=== PATIENT | female | born 1935 | race Caucasian/White ===

== ENCOUNTER 2020-06-09 13:28 | Emergency (ER) | payer OTHER ==
[~2020-06-09] VITALS: Ht 167.6 cm; Wt 74.8 kg
[~2020-06-09 13:28] MED LIST: TRAM50TA1 PO; UNKNOWN BP MED
[2020-06-09 14:14] VITALS: BP 202/121
[2020-06-09] MEDS ORDERED: MORPHINE SULFATE 4 MG/ML SYR IVP ONE (14:25)
[2020-06-09] MEDS ORDERED: NACL 0.9% 1,000 ML IV ONE (14:25)
[2020-06-09 15:13] LABS: BASOPHILS # (AUTO) 0.1 K/uL (0.00-0.22); BASOPHILS % (AUTO) 0.8 % (0.0-2.0); EOSINOPHILS # (AUTO) 0.1 K/uL (0-0.4); EOSINOPHILS % (AUTO) 0.7 % (0.0-4.0); HEMATOCRIT 35.1 % (36-48); LYMPHOCYTES % (AUTO) 18.8 % (20.5-51.1); MEAN CORPUSCULAR HEMOGLOBIN 32 pg (27-31); MEAN CORPUSCULAR HGB CONC 34 g/dL (33-37); MEAN CORPUSCULAR VOLUME 92.9 fL (80-94); MONOCYTES # (AUTO) 1.1 K/uL (0.8-1.0); MONOCYTES % (AUTO) 10.7 % (1.7-9.3); NEUTROPHILS # (AUTO) 7.2 K/uL (1.8-7.7); PLATELET COUNT (AUTO) 179 K/uL (140-450); RED BLOOD CELL COUNT(AUTO) 3.77 MIL/uL (4.20-5.40); RED CELL DISTRIBUTION WIDTH 14.4 % (11.6-13.7); WHITE BLOOD COUNT (AUTO) 10.4 K/uL (4.8-10.8)
[2020-06-09 15:34] LABS: ALBUMIN 3.5 g/dL (3.4-5.0); ANION GAP 9.6 (8-16); ASPARTATE AMINOTRANSFERASE 33 U/L (15-37); CARBON DIOXIDE 30.5 mmol/L (21-32); CHLORIDE 100 mmol/L (98-107); GLUCOSE 160 mg/dL (74-106); POTASSIUM 4.1 mmol/L (3.5-5.1); SODIUM SERUM 136 mmol/L (136-145); TOTAL BILIRUBIN 0.3 mg/dL (0.0-1.0)
[2020-06-09 15:56] LABS: UREA NITROGEN, BLOOD 9 mg/dL (7-18)
[2020-06-09 17:12] VITALS: BP 147/74
== END 2020-06-09 17:13 | disposition home or self-care (01) ==
LOC: MED 13:28
DX: R51.9 Headache, unspecified (principal); N39.0 Urinary tract infection, site not specified; I10 Essential (primary) hypertension
CPT/HCPCS: 36415; 70450; 80053; 81002; 85025; 87804; 96361; 96374; 99284; J2270; J7030

== ENCOUNTER 2020-06-13 18:23 | Inpatient (IN) | payer OTHER, SELFPAY ==
[~2020-06-13] VITALS: Ht 162.6 cm; Wt 72.6 kg
[2020-06-13 18:32] VITALS: BP 167/108
--- NOTE | 2020-06-13 19:15 | NUR ---
CALLED [facility] FOR ERMD-- PHYSICIAN CREDENTIALING SPECIALIST WON WITH ID: [id number]
--- NOTE | 2020-06-13 19:29 | NUR ---
Dr. Meyers examining patient.
[2020-06-13] MEDS ORDERED: NACL 0.9% 1,000 ML IV ONE (19:35)
[2020-06-13] MEDS ORDERED: KETOROLAC 30 MG/ML VIAL IVP ONE (19:35)
--- NOTE | 2020-06-13 19:44 | NUR ---
PT TAKEN TO ER BED 4
[2020-06-13 20:00] LABS: BASOPHILS # (AUTO) 0.1 K/uL (0.00-0.22); BASOPHILS % (AUTO) 0.3 % (0.0-2.0); EOSINOPHILS # (AUTO) 0.1 K/uL (0-0.4); EOSINOPHILS % (AUTO) 0.3 % (0.0-4.0); HEMATOCRIT 35.2 % (36-48); LYMPHOCYTES # (AUTO) 1.7 K/uL (2.5-16.5); LYMPHOCYTES % (AUTO) 8.9 % (20.5-51.1); MEAN CORPUSCULAR HEMOGLOBIN 32 pg (27-31); MEAN CORPUSCULAR HGB CONC 34 g/dL (33-37); MEAN CORPUSCULAR VOLUME 92.3 fL (80-94); MONOCYTES # (AUTO) 1.6 K/uL (0.8-1.0); MONOCYTES % (AUTO) 8.2 % (1.7-9.3); NEUTROPHILS % (AUTO) 82.3 % (42.2-75.2); PLATELET COUNT (AUTO) 174 K/uL (140-450); RED BLOOD CELL COUNT(AUTO) 3.82 MIL/uL (4.20-5.40); RED CELL DISTRIBUTION WIDTH 13.8 % (11.6-13.7); WHITE BLOOD COUNT (AUTO) 19.5 K/uL (4.8-10.8)
--- NOTE | 2020-06-13 20:00 | NUR ---
Spring dougherty in ED - 06/13/20 at 2009 by MEDNAJMA EKG PERFORMED IN TENT WITH SCREEN. EKG READS SINUS RHYTHM @ 81
--- NOTE | 2020-06-13 20:00 | NUR ---
85 Y/O FEMALE PRESENTED TO THE ED FROM HOME C/O 02/19 SHARP ABD PAIN, GRAJEDA AND PLEURITIC CHEST PAIN, WEAKNESS AND DECREASED APPETITE X2 DAYS. +N/V. DENIES FEVER/DIARRHEA. S1,S2 SOUNDS NOTED. DIMINISHED LUNG SOUNDS IN BILATERAL LOBES. PT DENIES PAIN WITH INSPIRATION. ABD IS TENDER TO PALPATION, BOWEL SOUNDS NORMOACTIVE X4 QUADRANT. PMH: HTN NKA
[2020-06-13 20:13] LABS: ALBUMIN 3.3 g/dL (3.4-5.0); ANION GAP 7.3 (8-16); ASPARTATE AMINOTRANSFERASE 30 U/L (15-37); CARBON DIOXIDE 31.4 mmol/L (21-32); CHLORIDE 92 mmol/L (98-107); CREATININE 1.1 mg/dL (0.6-1.3); GLUCOSE 161 mg/dL (74-106); POTASSIUM 3.7 mmol/L (3.5-5.1); SODIUM SERUM 127 mmol/L (136-145); TOTAL BILIRUBIN 0.6 mg/dL (0.0-1.0); UREA NITROGEN, BLOOD 9 mg/dL (7-18)
--- NOTE | 2020-06-13 20:20 | NUR ---
PT REFUSED METOCLOPRAMIDE, SHE STATED THAT SHE DOESN'T NEED IT BECAUSE SHE IS NO LONGER NAUSEOUS
[2020-06-13] MEDS: METOCLOPRAMIDE 10 MG/2 ML INJ VIAL IVP ONE ×2 (20:35→20:59)
--- NOTE | 2020-06-13 21:00 | NUR ---
PT IS SITTING IN UPRIGHT POSITION FOR COMFORT, PT IS CONNECTED TO THE VP DESIGN. BED IS LOCKED AND IN LOWEST POSITION. SIDE RAILSX1. NO ACUTE DISTRESS NOTED AT THIS TIME. SAO2@96%RA.
--- NOTE | 2020-06-13 21:38 | NUR ---
PT AMBULATED TO ED RESTROOM WITH STEADY GAIT
[2020-06-13] MEDS ORDERED: cefTRIAXone 1,000 MG VIAL ONE (21:40)
--- NOTE | 2020-06-13 21:45 | NUR ---
PT AMBULATED TO ED BED 4 WITH STEADY GAIT AND RECONNECTED TO THE DECAL CUTTER.
--- NOTE | 2020-06-13 22:09 | NUR ---
PER JULIA TERRY, ORDERS FOR URINE COLLECTION AND DIP STICK NEEDED
--- NOTE | 2020-06-13 22:16 | NUR ---
URINE DIP STICK COLLECTED, DOCUMENTED AND JULIA TERRY MADE AWARE
[2020-06-13] MEDS ORDERED: MORPHINE SULFATE 4 MG/ML SYR IVP SCH (22:35)
--- NOTE | 2020-06-13 22:57 | NUR ---
[facility], PCR, AND FLU COLLECTED---LAB NOTIFIED THAT THEY'RE READY FOR PICKUP
[2020-06-13 22:58] LABS: APPEARANCE,URINE CLEAR (CLEAR); BILIRUBIN,URINE NEGATIVE (NEGATIVE); BLOOD, URINE NEGATIVE (NEGATIVE); COLOR,URINE YELLOW (YELLOW); LEUKOCYTE ESTERASE ,URINE NEGATIVE (NEGATIVE); NITRITE, URINE NEGATIVE (NEGATIVE); UGLUCOSE TRACE (NEGATIVE)
--- NOTE | 2020-06-13 23:00 | NUR ---
PT IS ON HER PHONE AND SITTING IN UPRIGHT POSITION FOR COMFORT, PT IS CONNECTED TO THE MOVIE EDITOR. BED IS LOCKED AND IN LOWEST POSITION. SIDE RAILSX1. NO ACUTE DISTRESS NOTED AT THIS TIME. SAO2@95%RA. CALL LIGHT WITHIN REACH.
--- NOTE | 2020-06-13 23:24 | NUR ---
SPOKE WITH SON, KIRSTIE JAUREGUI TO UPDATE HIM ON THE PT STATUS AND ADMISSION
[2020-06-13] MEDS ORDERED: POTASSIUM CHLORIDE 10 MEQ TABER PO PRN (23:30)
[2020-06-13] MEDS ORDERED: MAGNESIUM OXIDE 400 MG TAB PO PRN (23:30)
[2020-06-13] MEDS ORDERED: KCL 20 MEQ/WATER INJ PREMIX 200 ML IV PRN (23:30)
[2020-06-13] MEDS ORDERED: ZOLPIDEM 5 MG TAB PO PRN (23:30)
[2020-06-13] MEDS ORDERED: ONDANSETRON 4 MG/2 ML VIAL IVP PRN (23:30)
[2020-06-13] MEDS ORDERED: MAG SULF 2000 MG/WATER PREMIX 50 ML IV PRN (23:30)
--- NOTE | 2020-06-13 23:45 | NUR ---
CALLED REPORT TO YANIRA LOCKE FOR TRANSFER OF CARE
[2020-06-13] MEDS ORDERED: AZITHROMYCIN 500 MG INJ VIAL IV ONE (23:58)
[2020-06-14] VITALS: BP 160/72
--- NOTE | 2020-06-14 00:07 | NUR ---
Patient will be admitted to care of . [facility]. Will go to [id number]. Belongings list completed. Report to YANIRA LOCKE.
--- NOTE | 2020-06-14 00:15 | NUR ---
ADMITTED A 85F FROM ER. CAME DUE TO H/A. ABDOMINAL PAIN, WITH N/V AT HOME. AWAKE,ALERT AND ORIENTED X4. MED SURG PT. PT WAS TESTED NEGATIVE ON RAPID COVID TEST . PCR TEST STILL PENDING. SHE HAS HX: COVID POSITIVE 2 MOS AGO. WITH NO C/O ANY DISCOMFORT NOR PAIN AT THIS TIME. NO SOB NOTED O2 SAT 95% ON RA. AMBULATORY. SKIN INTACT. WITH HL ON THE LT AC G#20. CLEAR AND PATENT. PLACED COMFORTABLE IN BED. SIDE RAILS UP X2. CALL LIGHT PLACED WITHIN REACH. PLAN OF CARE DISCUSSED . WILL CONTINUE TO MONITOR.
[2020-06-14] MEDS: NACL 0.9% 1,000 ML IV SCH ×3 (00:23→22:17)
[2020-06-14] MEDS: AZITHROMYCIN 500 MG in DEXTROSE 5% 250 ML IV SCH ×2 (00:23→22:07)
--- NOTE | 2020-06-14 00:23 | NUR ---
ZITHROMAX IVPB STARTED . WILL MONITOR FOR ANY REACTION.
--- NOTE | 2020-06-14 01:50 | NUR ---
spoke with the pt and her son Marcial Nichole, they are both unable to provide the names of the patient's medications at this time.
[2020-06-14] MEDS ORDERED: IBUP-2213 PO (01:56)
[2020-06-14] MEDS ORDERED: ACET-9494 PO (01:56)
[2020-06-14] MEDS ORDERED: CIPR500T4 PO (01:56)
[2020-06-14] MEDS ORDERED: ONDA8TAB87 PO (01:56)
--- NOTE | 2020-06-14 02:00 | NUR ---
PT FEEL COLD. PROVIDED WITH WARM BLANKET.
[2020-06-14 04:00] VITALS: BP 142/66
--- NOTE | 2020-06-14 04:00 | NUR ---
AWAKE .WATCHING TV. NO C/O ANY DISCOMFORT NOR PAIN NOTED. WILL CONTINUE TO MONITOR.
--- NOTE | 2020-06-14 06:00 | NUR ---
MADE ROUNDS. PT IS ASLEEP. NO S/S OF ANY DISTRESS NOTED.
[2020-06-14 06:52] LABS: BASOPHILS % (AUTO) 0.2 % (0.0-2.0); EOSINOPHILS % (AUTO) 0.1 % (0.0-4.0); HEMATOCRIT 31.2 % (36-48); HEMOGLOBIN 10.7 g/dL (12.0-16.0); LYMPHOCYTES # (AUTO) 1.6 K/uL (2.5-16.5); LYMPHOCYTES % (AUTO) 8.2 % (20.5-51.1); MEAN CORPUSCULAR HEMOGLOBIN 32 pg (27-31); MEAN CORPUSCULAR HGB CONC 34 g/dL (33-37); MEAN CORPUSCULAR VOLUME 92.2 fL (80-94); MONOCYTES # (AUTO) 2.1 K/uL (0.8-1.0); MONOCYTES % (AUTO) 10.9 % (1.7-9.3); NEUTROPHILS # (AUTO) 15.7 K/uL (1.8-7.7); NEUTROPHILS % (AUTO) 80.6 % (42.2-75.2); PLATELET COUNT (AUTO) 139 K/uL (140-450); RED BLOOD CELL COUNT(AUTO) 3.38 MIL/uL (4.20-5.40); RED CELL DISTRIBUTION WIDTH 13.9 % (11.6-13.7); WHITE BLOOD COUNT (AUTO) 19.5 K/uL (4.8-10.8)
--- NOTE | 2020-06-14 07:10 | NUR ---
REC'D REPORT FROM VENEER STOCK LAYER NURSE, PT A/Ox4, MALTESE SPEAKING,. RA.ROCIO
[2020-06-14 07:16] LABS: ALBUMIN 2.8 g/dL (3.4-5.0); ANION GAP 7.9 (8-16); ASPARTATE AMINOTRANSFERASE 28 U/L (15-37); CARBON DIOXIDE 31.3 mmol/L (21-32); CHLORIDE 98 mmol/L (98-107); GLUCOSE 130 mg/dL (74-106); MAGNESIUM 1.5 mg/dL (1.8-2.4); POTASSIUM 4.2 mmol/L (3.5-5.1); SODIUM SERUM 133 mmol/L (136-145); TOTAL BILIRUBIN 0.7 mg/dL (0.0-1.0); UREA NITROGEN, BLOOD 8 mg/dL (7-18)
--- NOTE | 2020-06-14 07:25 | NUR ---
ENDORSED PT IN STABLE CONDITION TO AM NURSE FOR CONTINUITY OF CARE.
[2020-06-14 08:00] VITALS: BP 129/6
[2020-06-14] MEDS: ENOXAPARIN 40 MG/0.4 ML SYR SUBQ SCH (08:28)
[2020-06-14] MEDS: DOCUSATE SODIUM 100 MG GELCAP PO SCH (08:28)
--- NOTE | 2020-06-14 08:34 | NUR ---
ADMINISTERED MEDICATION PER MD ORDER, PT TOLERATED PROCEDURE WELL, HAS BREAKFAST TRAY AT BEDSIDE, DENIES PAIN AT THIS TIME, CALL LIGHT WITHIN REACH, BED LOWEST POSITION. PT STABLE, NO SIGN OF DISTRESS
--- NOTE | 2020-06-14 09:08 | NUR ---
PATIENT HAS BEEN SCREENED AND CATEGORIZED MODERATE NUTRITION RISK. PATIENT WILL BE SEEN WITHIN 3-5 DAYS OF ADMISSION. 06/16/20 06/18/[address]
[2020-06-14] MEDS: ACETAMINOPHEN 325 MG TAB PO PRN ×2 (10:52→17:37)
--- NOTE | 2020-06-14 10:52 | NUR ---
PT C/O HEADACHE, NECK PAIN 7/10 ADMINISTERED ACETAMINOPHEN 650MG
--- NOTE | 2020-06-14 12:08 | NUR ---
DC PLANNIN YRS OLD FEMALE PATIENT WAS ADMITTED FROM HOME WITH A DX OF PNEUMONIA, PUI, AND HYPONATREMIA. PT HAS A HX OF HTN. CXR SHOWED MILD BIBASAL OPACITIES CONCERNING FOR MULTIFOCAL PNEUMONIA. RAPID COVID TEST NEGATIVE PCR IS PENDING. ADMINISTERED IVF, IV ABX ROCEPHIN AND AZITHROMYCIN IV ABX AND CONTINUED HOME MEDS. DC PLAN TO GO HOME WHEN STABLE CM TO FOLLOW Addendum: 06/15/20 at 1207 by Mary Jay CM DC POWDERER: SPOKE TO PATIENT USING QUILLER HAND [id number] TO DISCUSS SNF. SHE IS NOT AGREEABLE TO GOING TO SNF BUT SHE IS AGREEABLE TO HOME HEALTH. Addendum: 06/15/20 at 1440 by Mary Jay CM JEAN-PAUL POWDERER: FAXED ORDER TO [facility] Addendum: 06/15/20 at 1503 by Mary Jay CM JEAN-PAUL MOY: RECEIVED A PHONE CALL FROM [facility] THEY ARE ABLE TO ACCEPT PATIENT. NOTIFIED YANIRA CHAMBERS.
--- NOTE | 2020-06-14 13:41 | NUR ---
SOCIAL WORK NOTE: Patient's Orientation Unable To Assess Information Provided By SHANIA FRAUSTO - SON Comments SW WAS UNABLE TO MEET PATIENT AT BEDSIDE. SW COMPLETED ASSESSMENT WITH PATIENT AT BEDSIDE. Business Info Consultant, Realtionship and Phone Number SHANIA FRAUSTO DAUGHTER [phone] Healthcare Power of Thrasher Feeder No Does Patient Have a POLST No Identifying Problems No Social Work Triggers Is A Social Work Consult Needed No Mandate Report Filed No Explanation Of Identifying Problems PATIENT IS AN 85-YEAR-OLD FEMALE ADMITED FOR PNEUMONIA. PATIENT HAS PMHX OF HYPERTENSION. Admitted From Home Pre-Admission Level Of Functioning Status Independent/Ambulatory Prior Resources/Services Used In Last 12 Months No Prior Resources Used Prior DME No Prior DME Used Dialysis Comments N/A Living Situation Lives With Family Mobile Home Patient Had Caregiver No Home Support No Caregiver Issues Financial Issues No Known Financial Issue Referral To The Financial Counselor Needed No Factors/Needs No D/C Needs Identified Pt/Rep Participated In Discharge Plan Yes Patient/Family Agress With Discharge Plan Yes Discharge Plan Comments TENTATIVE DISCHARGE PLAN IS FOR PATIENT TO RETURN HOME. DC Plan Status Initiated
[2020-06-14 16:00] VITALS: BP 124/58
--- NOTE | 2020-06-14 18:18 | NUR ---
PT RESTING, CALL LIGHT WITHIN REACH, RA. NO SIGN OF DISTRESS
--- NOTE | 2020-06-14 19:20 | NUR ---
ENDORSED PT TO ASSISTANT PLANT CONTROLLER NURSE FOR CONTINUITY OF CARE, PT ON RA, CALL LIGHT WITHIN REACH. STABLE
[2020-06-14 20:00] VITALS: BP 163/71
--- NOTE | 2020-06-14 20:00 | NUR ---
PT IN BED NO C/ O 3/10 PAIN, PAIN TOLERABLE AT THIS TIME.
[2020-06-14] MEDS ORDERED: traMADol 50 MG TAB PO PRN (22:40)
[2020-06-15] VITALS: BP 154/63
--- NOTE | 2020-06-15 | NUR ---
CALLED ORDER ENTRY SPECIALIST MD BECAUSE PT PAIN NOT RELIEVED WITH TYLENOL. MD ORDER ENTRY SPECIALIST MD GARRISON ORDERED A TRAMADOL 50MG PO Q 6HRS. MD MADE AWARE THAT B/P IS ELEVATED AT 163/71, HE ORDERED PT AT HOME MEDICATION BENAZAPRIL 5MG IN THE AM.
--- NOTE | 2020-06-15 01:00 | NUR ---
PT WAS GIVEN PRN TRTAMADOL V/S FOLLOWS: T 98.5 P 67 R20 B/P 154/63 02 94% ON ROOM AIR. Addendum: 06/15/20 at 0539 by Louise Varner RN [id number]
[2020-06-15] MEDS: ACETAMINOPHEN 325 MG TAB PO PRN ×2 (01:33→09:28)
[2020-06-15 04:00] VITALS: BP 168/72
[2020-06-15] MEDS ORDERED: traMADol 50 MG TAB PO ONE (05:00)
[2020-06-15] MEDS ORDERED: hydrALAZINE 25 MG TAB PO PRN (05:00)
--- NOTE | 2020-06-15 05:00 | NUR ---
PAGED POCKET CLOSER MD TREJO, WHOM ORDERED A X1 DOSE OF TRAMADOL 50MG AND A HYDRALAZINE 50MG PO/PRN FOR HTN..
[2020-06-15 07:14] LABS: ALBUMIN 2.7 g/dL (3.4-5.0); ANION GAP 8.8 (8-16); ASPARTATE AMINOTRANSFERASE 24 U/L (15-37); CARBON DIOXIDE 29.7 mmol/L (21-32); CHLORIDE 98 mmol/L (98-107); CREATININE 0.9 mg/dL (0.6-1.3); GLUCOSE 123 mg/dL (74-106); MAGNESIUM 2.1 mg/dL (1.8-2.4); POTASSIUM 3.5 mmol/L (3.5-5.1); SODIUM SERUM 133 mmol/L (136-145); TOTAL BILIRUBIN 0.7 mg/dL (0.0-1.0); UREA NITROGEN, BLOOD 10 mg/dL (7-18)
--- NOTE | 2020-06-15 07:38 | NUR ---
REC'D REPORT FROM MASTER BREWER NURSE. PT SLEEPING, RA. PER MASTER BREWER NURSE PT NOT ABLE TO SLEEP DURING NIGHT, WILL CONTINUE TO MONITOR HER HEADACHE TODAY.
[2020-06-15 08:00] VITALS: BP 149/64
[2020-06-15] MEDS: ENOXAPARIN 40 MG/0.4 ML SYR SUBQ SCH (09:25)
[2020-06-15] MEDS: DOCUSATE SODIUM 100 MG GELCAP PO SCH (09:27)
[2020-06-15] MEDS: BENAZEPRIL 5 MG TAB PO SCH (09:28)
--- NOTE | 2020-06-15 09:35 | NUR ---
ADMINISTERED MEDICATIONS PER MD ORDER, PT C/O HEADACHE 12/20 GAVE ACETAMINOPHEN PER MD ORDER, PT TOLERATED PROCEDURE WELL
[2020-06-15 10:26] LABS: BASOPHILS % (AUTO) 0.3 % (0.0-2.0); EOSINOPHILS # (AUTO) 0.3 K/uL (0-0.4); EOSINOPHILS % (AUTO) 1.8 % (0.0-4.0); HEMATOCRIT 30.5 % (36-48); HEMOGLOBIN 10.4 g/dL (12.0-16.0); LYMPHOCYTES # (AUTO) 1.8 K/uL (2.5-16.5); LYMPHOCYTES % (AUTO) 10.9 % (20.5-51.1); MEAN CORPUSCULAR HEMOGLOBIN 32 pg (27-31); MEAN CORPUSCULAR HGB CONC 34 g/dL (33-37); MEAN CORPUSCULAR VOLUME 92.4 fL (80-94); MONOCYTES # (AUTO) 2.1 K/uL (0.8-1.0); MONOCYTES % (AUTO) 12.5 % (1.7-9.3); NEUTROPHILS # (AUTO) 12.3 K/uL (1.8-7.7); NEUTROPHILS % (AUTO) 74.5 % (42.2-75.2); PLATELET COUNT (AUTO) 123 K/uL (140-450); RED CELL DISTRIBUTION WIDTH 14.3 % (11.6-13.7); WHITE BLOOD COUNT (AUTO) 16.5 K/uL (4.8-10.8)
[2020-06-15] MEDS ORDERED: HYDROcodone/APAP 5/325 MG 1 TAB TAB PO ONE (12:35)
[2020-06-15] MEDS ORDERED: HYDROcodone/APAP 5/325 MG 1 TAB TAB PO SCH (13:00)
[2020-06-15] MEDS: NACL 0.9% 1,000 ML IV SCH (13:00)
[2020-06-15 16:00] VITALS: BP 127/60
[2020-06-15] MEDS ORDERED: HYDROcodone/APAP 5/325 MG 1 TAB TAB PO PRN (19:00)
--- NOTE | 2020-06-15 19:41 | NUR ---
RECEIVED REPORT FROM RN DAYSHIFT NURSE AT BEDSIDE FOR CONTINUITY OF CARE, PT IN STABLE CONDITION.
--- NOTE | 2020-06-15 19:41 | NUR ---
ENDORSED PT TO CERTIFIED CYTOTECHNOLOGIST NURSE ,PT STABLE, NO SIGN OF DISTRESS
[2020-06-15 20:00] VITALS: BP 136/62
--- NOTE | 2020-06-15 20:30 | NUR ---
PT SITTING IN BED AOX4 RESPIRATIONS EVEN AND UNLABORED ON ROOM AIR. PT HAS LAC 20G RUNNING AT 80MLS/HR. V/S FOLLOWS: T 98.0 P 68 R 20 B/P 136/62 02 98% ON ROOM AIR. ALL UNIVERSAL PRECAUTIONS IN PLACE.
--- NOTE | 2020-06-15 21:00 | NUR ---
NEAL HUNG AND RUNNING AT 100MLS/HR ORDERED.
--- NOTE | 2020-06-15 21:45 | NUR ---
PT C/O OF PAIN, SWELLING AND LEAKING ON LAC IV SITE. IV SITE TAKEN OUT AND WAS REPLACED WITH A 22G ON RIGHT F/A. ZITHROMAX HUNG AND RUNNING AT 250MLS/HR ORDERED.
[2020-06-15] MEDS: AZITHROMYCIN 500 MG in DEXTROSE 5% 250 ML IV SCH (22:33)
--- NOTE | 2020-06-15 22:40 | NUR ---
PT C/O OF 5/10 NECK AND HEADACHE PAIN DUE TO ARTHRITIS, PT GIVEN PO/PRN NORCO WILL MONITOR FOR RELIEF. PT REQUEST THAT FLUIDS BE SALINE LOCKED AT THIS TIME. PT WANTED TO LET THE AM SHIFT KNOW THAT SHE DOESN'T BELIEVE SHE HAS PNA ANYMORE AND DOESN'T WANT ANY MORE IV ABT. PT ALSO WANTED IV SITE OUT. EXPLAINED TO PT THAT CXR SHOWS SOME INFILTRATIONS AND THAT HER WBC IS HIGH. ALSO EXPLAINED THAT EVERY PT ON THE FLOOR HAS IV SITE INCASE THEY CODE AND WE NEED IV ACCESS. PT VERBALIZED UNDERSTANDING. PT EXPRESSED DESIRE TO GO TO SLEEP AND SHE LAYED DOWN WITH INTENT OF SLEEPING, NO C/O VOICED AT THIS TIME.
[2020-06-16] VITALS: BP 140/70
--- NOTE | 2020-06-16 | NUR ---
PT IN BED NO C/O VOICED V/S FOLLOWS: T 97.9 P 72 R 20 B/P 140/70 02 98% ON ROOM AIR.
[2020-06-16] MEDS: NACL 0.9% 1,000 ML IV SCH ×2 (01:30→14:00)
[2020-06-16 04:00] VITALS: BP 134/57
--- NOTE | 2020-06-16 04:00 | NUR ---
PT IN BED, AWAKE WITH C/O OF RESTLESSNESS AND SLEEPLESSNESS, PT V/S FOLLOWS: T 98.4 P 88 R 20 B/P 134/57 02 98%. TP GIVEN AMBIEN FOR SLEEPLESSNESS. SON SHANIA UPDATED REGARDING PT CONDITION.
[2020-06-16 06:54] LABS: BASOPHILS # (AUTO) 0.1 K/uL (0.00-0.22); BASOPHILS % (AUTO) 0.6 % (0.0-2.0); EOSINOPHILS # (AUTO) 0.4 K/uL (0-0.4); EOSINOPHILS % (AUTO) 3.3 % (0.0-4.0); HEMATOCRIT 30.2 % (36-48); HEMOGLOBIN 10.2 g/dL (12.0-16.0); LYMPHOCYTES # (AUTO) 2.1 K/uL (2.5-16.5); LYMPHOCYTES % (AUTO) 18.8 % (20.5-51.1); MEAN CORPUSCULAR HEMOGLOBIN 31 pg (27-31); MEAN CORPUSCULAR HGB CONC 34 g/dL (33-37); MEAN CORPUSCULAR VOLUME 92.3 fL (80-94); MONOCYTES # (AUTO) 1.2 K/uL (0.8-1.0); MONOCYTES % (AUTO) 10.7 % (1.7-9.3); NEUTROPHILS # (AUTO) 7.5 K/uL (1.8-7.7); NEUTROPHILS % (AUTO) 66.6 % (42.2-75.2); PLATELET COUNT (AUTO) 153 K/uL (140-450); RED BLOOD CELL COUNT(AUTO) 3.27 MIL/uL (4.20-5.40); RED CELL DISTRIBUTION WIDTH 14.7 % (11.6-13.7); WHITE BLOOD COUNT (AUTO) 11.3 K/uL (4.8-10.8)
[2020-06-16 07:49] LABS: ALBUMIN 2.5 g/dL (3.4-5.0); ANION GAP 7.6 (8-16); ASPARTATE AMINOTRANSFERASE 20 U/L (15-37); CARBON DIOXIDE 31.6 mmol/L (21-32); CHLORIDE 101 mmol/L (98-107); CREATININE 0.8 mg/dL (0.6-1.3); GLUCOSE 102 mg/dL (74-106); MAGNESIUM 1.9 mg/dL (1.8-2.4); POTASSIUM 4.2 mmol/L (3.5-5.1); SODIUM SERUM 136 mmol/L (136-145); TOTAL BILIRUBIN 0.4 mg/dL (0.0-1.0); UREA NITROGEN, BLOOD 8 mg/dL (7-18)
[2020-06-16] MEDS: BENAZEPRIL 5 MG TAB PO SCH (10:08)
[2020-06-16] MEDS: DOCUSATE SODIUM 100 MG GELCAP PO SCH (10:08)
[2020-06-16] MEDS: ENOXAPARIN 40 MG/0.4 ML SYR SUBQ SCH (10:16)
[2020-06-16] MEDS ORDERED: AMOX-999 PO (10:47)
== END 2020-06-16 15:55 | disposition home health service (06) | DRG 720 ==
LOC: MED 18:23 → MTU 23:29
PROVIDERS: ADMIT Internal Medicine; ATTEND Internal Medicine
DX: A41.9 Sepsis, unspecified organism (principal); J18.9 Pneumonia, unspecified organism; Z20.822 Contact with and (suspected) exposure to COVID-19; I10 Essential (primary) hypertension; E87.1 Hypo-osmolality and hyponatremia; D64.9 Anemia, unspecified; E83.42 Hypomagnesemia; E88.09 Other disorders of plasma-protein metabolism, not elsewhere classified
CPT/HCPCS: 36415; 71045; 80053; 81003; 83036; 83605; 83690; 83735; 83880; 84484; 85025; 85379; 85610; 85730; 87081; 87804; 93005; 96361; 96365; 96375; 97110; 97112; 97116; 97161-GP; 97530; 99285; J0456; J0696; J1650; J1885; J2270; J2405; J2765; J3475; J7030; J7060; U0003

== ENCOUNTER 2020-07-05 05:00 | Emergency (ER) | payer OTHER, SELFPAY ==
[~2020-07-05] VITALS: Ht 160 cm; Wt 61.2 kg
[~2020-07-05 05:00] MED LIST changes: +AMOX-999 PO; +ONDA8TAB87 PO; +OXYC-163 PO; -TRAM50TA1 PO; -UNKNOWN BP MED
[2020-07-05 05:12] VITALS: BP 177/78
[2020-07-05] MEDS ORDERED: HYDROXYZINE HYDROCHLORIDE 25 MG TAB PO STA (05:24)
[2020-07-05] MEDS ORDERED: ACETAMINOPHEN EXTRA STRENGTH 500 MG TAB PO ONE (05:25)
[2020-07-05] MEDS ORDERED: amLODIPine 5 MG TAB PO ONE (05:25)
[2020-07-05 06:40] VITALS: BP 132/60
== END 2020-07-05 06:40 | disposition home or self-care (01) ==
LOC: MED 05:00
DX: I10 Essential (primary) hypertension (principal); R51.9 Headache, unspecified; Z79.899 Other long term (current) drug therapy
CPT/HCPCS: 99285

== ENCOUNTER 2021-01-13 14:52 | Emergency (ER) | payer OTHER ==
[~2021-01-13] VITALS: Ht 170.2 cm; Wt 63.5 kg
[~2021-01-13 14:52] MED LIST changes: -OXYC-163 PO; +OXYC-304 PO
[2021-01-13 14:59] VITALS: BP 109/58
--- NOTE | 2021-01-13 15:06 | NUR ---
PT TO AWAIT IN LOBBY
--- NOTE | 2021-01-13 15:51 | NUR ---
PT TAKEN TO BED 11.
--- NOTE | 2021-01-13 15:52 | NUR ---
JUSTIN MCDEMROTT EXAMINING PT
[2021-01-13] MEDS ORDERED: NACL 0.9% 1,000 ML IV ONE (16:00)
--- NOTE | 2021-01-13 16:10 | NUR ---
85 Y/O F TRISTIN FRITZ FROM URGENT CARE, PATIENT PRESENTS TO ED WITH EPIGASTRIC PAIN, DIARRHEA WITH N&V FOR 1 WEEK. PT DAUGHTER STATES MD AT URGENT CARE TOLD HER TO COME TO ER FOR IV REHYDRATION TO TX DEHYDRATION; SKIN IS PINK/WARM/DRY; AAOX4 WITH EVEN AND STEADY GAIT; LUNGS CLEAR BL; HR EVEN AND REGULAR; PT DENIES ANY FEVER, CP, SOB, OR COUGH AT THIS TIME; PATIENT STATES PAIN OF 7/10 AT THIS TIME;PATIENT POSITIONED FOR COMFORT; HOB ELEVATED; BEDRAILS UP X2; BED DOWN. ER MD MADE AWARE OF PT STATUS. PMH: DM2, HTN NKA
--- NOTE | 2021-01-13 16:11 | NUR ---
PT STATES SHE IS UNABLE TO GIVE URINE AT THIS TIME
[2021-01-13 16:15] LABS: BASOPHILS # (AUTO) 0.1 K/uL (0.00-0.22); BASOPHILS % (AUTO) 0.4 % (0.0-2.0); EOSINOPHILS # (AUTO) 0.2 K/uL (0-0.4); EOSINOPHILS % (AUTO) 1.7 % (0.0-4.0); HEMOGLOBIN 12.2 g/dL (12.0-16.0); LYMPHOCYTES # (AUTO) 2.9 K/uL (2.5-16.5); MEAN CORPUSCULAR HEMOGLOBIN 31 pg (27-31); MEAN CORPUSCULAR HGB CONC 34 g/dL (33-37); MEAN CORPUSCULAR VOLUME 91.6 fL (80-94); MONOCYTES # (AUTO) 1.3 K/uL (0.8-1.0); MONOCYTES % (AUTO) 10.9 % (1.7-9.3); NEUTROPHILS # (AUTO) 7.6 K/uL (1.8-7.7); PLATELET COUNT (AUTO) 190 K/uL (140-450); RED BLOOD CELL COUNT(AUTO) 3.93 MIL/uL (4.20-5.40); WHITE BLOOD COUNT (AUTO) 12.1 K/uL (4.8-10.8)
[2021-01-13 16:29] LABS: ALBUMIN 3.4 g/dL (3.4-5.0); ANION GAP 9.8 (8-16); ASPARTATE AMINOTRANSFERASE 28 U/L (15-37); CARBON DIOXIDE 29.6 mmol/L (21-32); CHLORIDE 95 mmol/L (98-107); CREATININE 1.1 mg/dL (0.6-1.3); GLUCOSE 111 mg/dL (74-106); LIPASE 95 U/L (73-393); POTASSIUM 3.4 mmol/L (3.5-5.1); SODIUM SERUM 131 mmol/L (136-145); TOTAL BILIRUBIN 0.3 mg/dL (0.0-1.0); UREA NITROGEN, BLOOD 18 mg/dL (7-18)
[2021-01-13 17:47] LABS: APPEARANCE,URINE CLEAR (CLEAR); BILIRUBIN,URINE NEGATIVE (NEGATIVE); BLOOD, URINE NEGATIVE (NEGATIVE); COLOR,URINE YELLOW (YELLOW); LEUKOCYTE ESTERASE ,URINE TRACE (NEGATIVE); NITRITE, URINE NEGATIVE (NEGATIVE); UGLUCOSE NEGATIVE (NEGATIVE)
[2021-01-13 18:19] LABS: RBC,URINE NONE SEEN /HPF (0-5); WBC,URINE 0-5 /HPF (0-5)
[2021-01-13] MEDS ORDERED: ONDA-24 SL (18:25)
[2021-01-13] MEDS ORDERED: CEPH500C16 PO (18:25)
[2021-01-13] MEDS ORDERED: ACET-10509 PO (18:25)
[2021-01-13 18:40] VITALS: BP 120/60
--- NOTE | 2021-01-13 18:40 | NUR ---
Patient discharged with v/s stable. Written and verbal after care instructions given and explained. Patient alert, oriented and verbalized understanding of instructions. Ambulatory with steady gait. All questions addressed prior to discharge. ID band removed. Patient advised to follow up with PMD. Rx of Cephalexin, Zofran, Tylenol given. Patient educated on indication of medication including possible reaction and side effects. Opportunity to ask questions provided and answered.
== END 2021-01-13 18:40 | disposition home or self-care (01) ==
LOC: MED 14:52
DX: K29.70 Gastritis, unspecified, without bleeding (principal); N39.0 Urinary tract infection, site not specified; E86.0 Dehydration; I10 Essential (primary) hypertension
CPT/HCPCS: 36415; 80053; 81001; 83690; 85025; 96360; 99283; J7030